=== PATIENT | male | born 1960 | race Caucasian/White ===

== ENCOUNTER → 2020-09-23 | Outpatient (CLI) | payer OTHER ==
[~2020-09-23] MED LIST: LOSA25TA25 PO
[2020-09-23 16:32] LABS: ALBUMIN 4.1 g/dL (3.4-5.0); ANION GAP 6 mmol/L (5-15); CALCIUM 9.3 mg/dL (8.5-10.1); CHLORIDE 106 mmol/L (98-107)
[2020-09-23 16:36] LABS: ALANINE AMINOTRANSFERASE 30 U/L (12-78); ALKALINE PHOSPHATASE 65 U/L (45-117); BILIRUBIN,TOTAL 0.6 mg/dL (0.2-1.0); CREATININE 1.26 mg/dL (0.7-1.3); TOTAL PROTEIN 7.6 g/dL (6.4-8.2)
== END | disposition home or self-care (01) ==
LOC: STAR 15:15
PROVIDERS: ATTEND Surgery
DX: Z01.812 Encounter for preprocedural laboratory examination (principal); K40.90 Unilateral inguinal hernia, without obstruction or gangrene, not specified as recurrent; Z20.828 Contact with and (suspected) exposure to other viral communicable diseases
CPT/HCPCS: 36415; 80053; 87635; 93005

== ENCOUNTER 2020-09-29 12:57 | Day surgery (SDC) | payer OTHER ==
[~2020-09-29] VITALS: Ht 180.3 cm; Wt 80.7 kg
[~2020-09-29 12:57] MED LIST changes: +BUPIVACAINE/PF 0.5% ONE; +EPINEPHRINE 1 MG/ML, 1ML ONE
[2020-09-29] MEDS ORDERED: LACTATED RINGERS 1,000 ML IV SCH (13:30)
[2020-09-29] MEDS ORDERED: CHLORHEXIDINE 15 ML UDC MM ONE (13:30)
[2020-09-29] MEDS ORDERED: MIDAZOLAM 1 MG/ML, 2ML ONE (13:58)
[2020-09-29] MEDS ORDERED: FENTANYL PF 250 MCG/5ML ONE (13:59)
[2020-09-29] MEDS ORDERED: PROMETHAZINE 25 MG/ML, 1ML IVPush PRN (14:00)
[2020-09-29] MEDS ORDERED: HYDROcodone/APAP 7.5-325MG/15ML UDC PO PRN (14:00)
[2020-09-29] MEDS ORDERED: hydrALAzine 20 MG/ML, 1ML IV PRN (14:00)
[2020-09-29] MEDS ORDERED: HALOPERIDOL 5 MG/ML IV PRN (14:00)
[2020-09-29] MEDS ORDERED: MEPERIDINE/PF 25MG/0.5ML IVPush PRN (14:00)
[2020-09-29] MEDS ORDERED: LABETALOL 5MG/ML, 20ML IV PRN (14:00)
[2020-09-29] MEDS ORDERED: HYDROmorphone 1 MG/ML, 1ML INJ IVPush PRN (14:00)
[2020-09-29] MEDS ORDERED: DIPHENHYDRAMINE 50 MG/ML, 1ML IVPush PRN (14:00)
[2020-09-29] MEDS ORDERED: KETOROLAC 30 MG/1 ML ONE (15:05)
[2020-09-29] MEDS ORDERED: ONDANSETRON 2MG/ML, 2ML ONE (16:02)
[2020-09-29] MEDS ORDERED: DEXAMETHASONE 4 MG/ML, 1ML ONE (16:02)
[2020-09-29] MEDS ORDERED: ROCURONIUM 10MG/ML,5ML ONE (16:02)
[2020-09-29] MEDS ORDERED: GLYCOPYRROLATE 0.2MG/1ML, 5ML ONE (16:02)
[2020-09-29] MEDS ORDERED: NEOSTIGMINE 1 MG/ML, 10ML ONE (16:02)
[2020-09-29] MEDS ORDERED: PROPOFOL 10 MG/ML, 20ML ONE (16:02)
[2020-09-29] MEDS ORDERED: SUCCINYLCHOLINE 20 MG/ML, 10ML ONE (16:02)
[2020-09-29] MEDS ORDERED: CEFAZOLIN 1,000 MG ONE (16:02)
[2020-09-29] MEDS ORDERED: FENTANYL PF 100 MCG/2ML ONE (16:33)
[2020-09-29] MEDS ORDERED: HYDROcodone/APAP 7.5-325MG/15ML UDC ONE (16:34)
[2020-09-29] MEDS: FENTANYL PF 100 MCG/2ML IV PRN ×2 (16:34→16:45)
== END 2020-09-29 18:25 | disposition home or self-care (01) ==
LOC: OUT 12:57
PROVIDERS: ATTEND Surgery
DX: K40.90 Unilateral inguinal hernia, without obstruction or gangrene, not specified as recurrent (principal); I10 Essential (primary) hypertension; Z79.899 Other long term (current) drug therapy
CPT/HCPCS: 49505; C1781; J0171; J0330; J0690; J1100; J1885; J2250; J2405; J2704; J2710; J3010; J7120